=== PATIENT | male | born 1950 | race Caucasian/White ===

== ENCOUNTER → 2019-07-24 | Outpatient (CLI) | payer MEDICARE, BC ==
[~2019-07-24] MED LIST: ASPI-496 PO; ATOR20TA37 PO; CARB1TAB43 PO; ENTA200T22 PO; OMNIPAQUE 350 MG/ML, 100ML BOTTLE ONE; RASA1TAB PO
[2019-07-24 09:25] LABS: ANION GAP 5 mmol/L (5-15); CALCIUM 8.7 mg/dL (8.5-10.1); CHLORIDE 107 mmol/L (98-107); CREATININE 1.41 mg/dL (0.7-1.3)
== END | disposition home or self-care (01) ==
LOC: RAD 09:02
PROVIDERS: ATTEND Internal Medicine Cardiovascular Disease
DX: I06.1 Rheumatic aortic insufficiency (principal); M51.37 Other intervertebral disc degeneration, lumbosacral region; E78.5 Hyperlipidemia, unspecified
CPT/HCPCS: 36415; 71275; 74174; 80048; 93306; 94010; 94726; 94729; Q9967